=== PATIENT | male | born 1980 | race Two or more races ===

== ENCOUNTER 2019-12-14 17:32 | Outpatient (AMB) | payer MEDICAID, SELFPAY ==
[2019-12-14 17:45] VITALS: BP 143/84; PULSE 117; RESP 18; TEMP 36.2; O2SAT 98; BMI 29.8
--- NOTE | 2019-12-14 17:45 | URCARE_ITS ---
Intake Ht./Wt. Decline/Exclusions Patient Declined Height and Weight this visit: No PT Meets exclusion criteria: No Vital Signs 12/14/19 17:45 Height 6 ft Height Method Measured Weight 99.79 kg Weight Measurement Method Standing Scale BMI 29.8 Temp 97.1 F Temp Source Temporal Artery Scan Pulse 117 H Pulse Source Monitor Respiration 18 BP 143/84 H Blood Pressure Source Automatic Cuff Blood Pressure Location Left Upper Arm Position Sitting Pulse Oximetry (%) 98 Oxygen Delivery Method Room Air Intake [place] Travel (last 14 days): No [facility] Travel (last 14 days): No Been in Contact w/Anyone Being Evaluated for Coronavirus (last 14 days): No Been in Close Contact w/Anyone Dx w/Coronavirus: No Zika Travel: No Been in contact w/anyone who has been Dx w/Zika Virus: No Been in contact w/anyone sick during travel outside country: No Patient >or equal to 18 years BMI outside of range 18.5-24.9: No Visit Reasons: UC Foot pain Primary Care Provider: Other,. Is patient in pain?: Yes Pain Location:: left foot Steven-Castillo/Numerical: 8 Pain Scale Used: Numeric (1 - 10) Triage Triage Allergy / Med Rec Allergies No Known Allergies Allergy (Verified 12/14/19 17:47) Band Placement: Patient Identification JOLEEN: [id number] Arrival Mode of Arrival: Private Vehicle Method of Arrival: Ambulatory Accompanied By: Self PCP or OBGYN visit in last 3 months: No Language Preferred Language: [place] [employer] Required: No Social History Alcohol / Drugs Hx Alcohol Use: No Hx Substance Use: No Safety Do You Feel Safe at Home: Yes Authorities Contacted: N/A Davis Fall Scale Special Populations Patient Comatose, Paralyzed or Immobile: No Patient Under the Age of 44 Years Old: No Assessment History of falling; immediate or within 3 months: No Secondary diagnosis: No Ambulatory aid: None IV Infusion: No Gait/Transferring: Normal/bedrest/immobile Mental Status: Oriented to own ability Score Score: 0 Risk Level/Action Risk Level: Low Risk Action: Good Basic Nursing Care Fall Star Level 1 Fall Star Level 1: Yes Patient Education Topic Education Topics: Discharge Instructions and Plan of Care Teaching Recipient: Patient Readiness, Motivation to Learn: Active Methods: Verbal instruction and Hand Out Educ Materials Suggested by INFO Button/Rx Monograph Given: No Response: Verbalize Understanding [employer] Required: No [facility] Hx Congestive Heart Failure: No Hx Diabetes Mellitus Type 1: No Hx Diabetes Mellitus Type 2: No Hx Renal Disease: No Hx Chronic Obstructive Pulmonary Disease (COPD): No Past Medical History Reviewed and agree with Nursing documentation.: Yes Past Medical History History Provided By: Patient Past Medical History: Yes Cardiac Medical History Hx Congestive Heart Failure: No Endocrine Medical History Hx Diabetes Mellitus Type 1: No Hx Diabetes Mellitus Type 2: No Genitourinary Medical History Hx Renal Disease: No Respiratory Medical History Hx COPD: No [facility] - Comment Comment: hepatitis c HPI HPI Comments Details: 39-year-old male presents to urgent care with complaint of left foot pain pain is localized to in between the inter-web of his left toes. 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 He states that his pain is worse with ambulation but denies any loss of mobility he denies any drainage to his toes and foot. He states that he is up-to-date on his immunization. Review of Systems (UC) Const Constitutional: Reports system reviewed and no additional complaints, except as documented ENT Ears. Nose, Mouth, and Throat: Reports system reviewed and no additional complaints, except as documented Card Cardiovascular: Reports system reviewed and no additional complaints, except as documented Resp Respiratory: Reports system reviewed and no additional complaints, except as documented Musc Musculoskeletal: Reports system reviewed and no additional complaints, except as documented, Denies abnormal gait, Denies deformity, Denies arthralgias, Denies limited range of motion and Denies tingling Skin/Breast Skin/Breast: Reports as per HPI, Reports dry skin, Reports nail changes, Reports skin pain, Denies skin ulcer and Denies jaundice Neuro Neurologic: Denies abnormal gait and Denies tingling Exam (UC) Limitations: no limitations General Appearance: alert, in no apparent distress, comfortable, cooperative, healthy appearing, well developed and well groomed ENT exam: Present normal exam, normal external ear exam, TM's normal bilaterally, normal oropharynx and mucous membranes moist SPO2%: 98% SPO2 type: Room Air SPO2% Normal/Abnormal: Normal Respiratory exam: Present normal lung sounds bilaterally Cardiovascular exam: Present regular rate and regular rhythm Extremities exam: full ROM Left Foot/toe: Top foot image: 1. Softening of the skin with maceration in between toes of the left foot Office Procedures UC Level of Care Nursing/Assessment/Reassessment Patient Status: Established Patient Nursing Assessment/Reassessment: Triage Asessment, Initial Vital Signs and RN General Assessments Coordination of Care: DC Instructions Simple 1-2 sets Established Patient Charge Established Patient Point Assignment: 40 Established Patient Point Assignment: EP Level 2 (40-75) Procedures: Pulse Ox reading: Yes SQ Im Injection: Yes Office Meds Xylocaine Performing Provider: Christopher Nick PA-C Administered by: Jose E Danielson RN on 12/14/19 18:15 Dose Route Admin Location Lot Number Expiration Date [facility] Merchandising Director 21 mg IM left glut ceftriaxone Performing Provider: Christopher Nick PA-C Administered by: Jose E Danielson RN on 12/14/19 18:15 Dose Route Admin Location Lot Number Expiration Date [facility] Merchandising Director 1 g IM left glut Assessment and Plan Assessment & Plan (1) Foot pain: Qualifiers: Laterality: left Qualified Code(s): M79.672 - Pain in left foot (2) Infection, fungal, left foot: Status: Acute Plan - Christopher Nick PA-C: Take your medication as prescribed f/up with your PCP in 5-7 days (3) Cellulitis of fifth toe of left foot: Status: Acute Plan - Christopher Nick PA-C: Take your medication as prescribed f/up with your PCP in 5-7 days (4) Cellulitis of fourth toe of left foot: Status: Acute Plan - Christopher Nick PA-C: Take your medication as prescribed f/up with your PCP in 5-7 days (5) Cellulitis of third toe of left foot: Status: Acute Plan - Christopher Nick PA-C: Take your medication as prescribed f/up with your PCP in 5-7 days Plan Details Other Medications: New: sulfamethoxazole-trimethoprim 800-160 mg (Bactrim DS) 800 mg (0.8333 x 800-160 mg) PO BID 10 days 20 tabs 0RF cephalexin (Keflex) 500 mg PO Q6H 10 days 40 caps 0RF clotrimazole 1% 1 applic topical TID 4 weeks 28 grams 0RF Other Orders: Orders: UC ceftriaxone 1 gram solution for injection with Lidocaine Today Primary Care Provider: Other,. 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 Supervising Physician: Sean Santacruz DC Evaluation Discharge Information Seen, Treated and Released by Provider: No Left Prior to Receiving Discharge Instructions: No Transfer to Outside Facility: No Vital Signs Vitals Signs N/A: Yes Pain Pain Medication / Other Intervention Provided: No Medication Medication Given this Visit: No Discharge Information Condition on Discharge: Stable Mode of Discharge: Ambulatory Discharge Transportation: Private Vehicle Instructions [employer] Required: No Discharge Instructions Given To: Patient Was Follow up Care Ordered: Yes Verbalizes Understanding of Discharge Instructions: Yes [facility] information card provided?: Yes Patient plan follow up w/PCP for [facility]: No
== END 2019-12-14 18:16 | disposition home or self-care (01) ==
PROVIDERS: PCP Family Medicine; Referring Provider Family Medicine; Visit Provider Physician Assistant